=== PATIENT | female | born 1955 | race Caucasian/White ===

== ENCOUNTER 2016-09-06 09:58 | Emergency (ER) | payer OTHER ==
[~2016-09-06] VITALS: Ht 157.5 cm; Wt 61.2 kg
[~2016-09-06 09:58] MED LIST: ACETAMINOPHEN-1 EAC1 PO; AMBIEN 10 MG TA10 MG PO; BACTRIM DS TAB1 EACH PO; COLACE100 MG PO; CYCLOBENZAPRINE5 MG; CYMBALTA30 MG PO; DARVOCET-N 1001 EAC1 PO; DIABETA 5MG TABL5 MG PO; FLEXERIL PO; IBUPROFEN 800800 MG PO; LEXAPRO20 MG; LEXAPRO20 MG PO; LIBRAX PO; LIPITOR 20 MG T20 M1; LIPITOR20 MG; MOBIC7.5 MG PO; NICOTINE TRANSD14 M1; NORCO 5-325 TA1 EACH PO; OXYCODONE HCL 55 MG; PERCOCET PO; PHENERGAN 25 MG25 M1 PO; PROTONIX40 M1; PROTONIX40 M2 PO; TRAMADOL 50 MG50 MG PO; ULTRACET TABLET1 TAB PO; VALIUM5 MG; VALIUM5 MG PO; ZANAFLEX4 MG; ZOCOR 20 MG TAB20 M1 PO
[2016-09-06] MEDS ORDERED: CYMBALTA60 MG PO (10:16)
[2016-09-06] MEDS ORDERED: AMBIEN 5 MG TABL5 M1 PO (10:17)
[2016-09-06] MEDS ORDERED: DIAZEPAM 5 MG5 M1 PO (10:17)
[2016-09-06] MEDS ORDERED: CLEOCIN HCL300 MG PO (10:37)
[2016-09-06] MEDS ORDERED: IBUPROFEN 600600 M1 PO (10:37)
== END 2016-09-06 11:11 | disposition home or self-care (01) ==
LOC: ER 09:58
DX: K04.7 Periapical abscess without sinus (principal); F41.9 Anxiety disorder, unspecified; F17.210 Nicotine dependence, cigarettes, uncomplicated; F32.9 Major depressive disorder, single episode, unspecified; Z90.89 Acquired absence of other organs; Z88.0 Allergy status to penicillin

== ENCOUNTER 2018-05-12 17:56 | Inpatient (IN) | payer OTHER ==
[~2018-05-12] VITALS: Ht 157.5 cm; Wt 61.2 kg
--- NOTE | ~2018-05-12 | HC ---
[facility] [place] [address] CONSULTATION Name: JUAN CARLOS SEARS Room #: 363-P ADM IN M.R.#: [id number] Admission: 05/12/18 Attend Phys: Josafat Contreras MD Discharge: Date of : 57 Report #: [id number] THIS REPORT FOR: //name// CC: JENN physician/PCP Josafat Contreras DATE OF SERVICE: 05/13/2018 CHIEF COMPLAINT: Right pubic ramus fracture and left thumb metacarpal fracture. HISTORY OF PRESENT ILLNESS: This frail 62-year-old female notes chronic severe degenerative arthritis involving both hips with chronic joint pain, which limits her ambulation and function. She states, however, that she has been living alone and functioning adequately, but uses a cane for ambulation. She fell at home, injuring the right pelvis and the left hand. X-rays here reveal a nondisplaced fracture of the right pubic ramus and x-rays of the left hand reveal a nondisplaced fracture of the left thumb metacarpal near its base. Both of these fractures seemed to be stable and well aligned and probably will heal in nicely with conservative management. 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 I have discussed these issues at some length with the patient. She states she is mildly uncomfortable at the right hip and groin, but symptoms there are similar to her previous symptoms. She notes the left hand and thumb is mildly uncomfortable, but is feeling better now that she has a firm supportive splint. She denies any other areas of new injury. Objectively, the right hip demonstrates limited range of motion with some joint crepitus, consistent with her severe degenerative osteoarthritis. There is mild pain to palpation along the pubic symphysis and pubic ramus, consistent with her new nondisplaced fracture. She seems to have satisfactory movement of the left hip with some crepitus and discomfort, consistent with degenerative change. The left wrist and hand are well supported in a plaster splint, which is holding the thumb in neutral position. Neurologic and vascular status appeared to be normal. X-rays, as noted above, reveal severe degenerative arthritis of the right hip and a new nondisplaced pubic ramus fracture. X-rays of left hand reveal a nondisplaced fracture at the base of the first metacarpal. We had a lengthy discussion and I believe both these fractures can be managed nonsurgically. I expect she will have difficulty with ambulation given her preexisting and new problems. I have discussed with her that she might need more assistance and possibly a brief stay in an extended care facility. She states she is confident she can go back to her own home and function independently. She may have some assistance from friends, but she has no family in the area. I feel she can bear full weight on both hips. She can use the [address] [address] CONSULTATION Name: RENUJUAN CARLOS Gail Room #: 363-P [facility] [place] ..#: [id number] Admission: 05/12/18 Attend Phys: Josafat Contreras MD Discharge: Date of : 57 Report #: [id number] left hand with her splint as comfort allows. I think we should probably see her back in my office in 10-14 days for followup x-ray and we may advance to a more comfortable semi-removable thumb spica splint at that point. I think you can proceed with discharge from the hospital, whenever outpatient arrangements are made. <ELECTRONICALLY SIGNED> By: Hong Andres MD 05/15/18 [id number] Hong Andres MD /nt
--- NOTE | ~2018-05-12 | HC ---
[facility] [place] [address] CONSULTATION Name: JUAN CARLOS SEARS Room #: 363-P [facility]#: [id number] Admission: 05/12/18 Attend Phys: Josafat Contreras MD Discharge: 05/18/18 Date of : 57 Report #: [id number] THIS REPORT FOR: //name// CC: JENN physician/PCP Josafat Contreras DATE OF SERVICE: 05/17/2018 HISTORY OF PRESENT ILLNESS: The patient is a 62-year-old white female with a prior history of severe degenerative arthritis, prior pelvic fracture, torn cartilage who was up and had a fall in her kitchen. She was noted to have hit her head, but no loss of consciousness. She complained of severe pelvic pain. She was seen by Orthopedics and noted to have a right pubic ramus fracture as well as a left thumb metacarpal fracture. She also has severe right hip avascular necrosis, which is premorbid. She is allowed to weightbearing as tolerated. We are seeing her in rehabilitation medicine consultation. PAST MEDICAL HISTORY: Includes anxiety, depression, pelvic fracture, cartilage torn right hip. PAST SURGICAL HISTORY: Includes appendectomy and oophorectomy. MEDICATIONS: Please see the full medication listing. This includes vitamins, herbals, and supplements. ALLERGIES: PENICILLIN. HABITS: Current every day smoker of cigarettes. Alcohol once per week. SOCIAL HISTORY: Lives in a house alone. Premorbid cane ambulator, 5 steps in. PHYSICAL EXAMINATION: GENERAL: Thin, small statured 62-year-old white female in no obvious distress, drowsy, will respond. VITAL SIGNS: Last recorded temperature 97.3, pulse 85, respirations 18, blood pressure 115/66. HEENT: Facies appeared symmetric. EXTREMITIES: Her left hand and wrist are dressed with a thumb splint in place. She has reasonable usage of that right upper extremity. Functionally, she is min assist. As far as ambulating short distance ambulation 50 feet with a right platform wheeled walker and mod assist has been noted for sit to stand transfers. ASSESSMENT: A 62-year-old white female with the following problem list: 1. Right pubic ramus fracture allowed weightbearing as tolerated. 2. Left [place] [address] CONSULTATION Name: JUAN CARLOS SEARS Room #: 363-P [facility] IN [facility].#: [id number] Admission: 05/12/18 Attend Phys: Josafat Contreras MD Discharge: 05/18/18 Date of : 57 Report #: [id number] 3. Severe right hip avascular necrosis. 4. Tobacco abuse. 5. History of anxiety and depression. PLAN: I do not see that she meets criteria for an acute [address] [place] [address] inpatient rehabilitation stay. Would agree with alf facility options as you are doing. Thank you for asking us to assist in this patient's care. <ELECTRONICALLY SIGNED> By: Hong Thompson MD 05/28/18 [id number] Hong Thompson MD /nt
[~2018-05-12 17:56] MED LIST changes: +AMBIEN 5 MG TABL5 M1 PO; +CLEOCIN HCL300 MG PO; +CYMBALTA60 MG PO; +DIAZEPAM 5 MG5 M1 PO; +IBUPROFEN 600600 M1 PO
[2018-05-12 18:08] VITALS: BP 159/85
[2018-05-12] MEDS ORDERED: MOBIC7.5 MG PO (18:15)
[2018-05-12] MEDS ORDERED: CYMBALTA30 MG PO (18:15)
[2018-05-12] MEDS ORDERED: LIPITOR 20 MG T20 M1 PO (18:15)
[2018-05-12] MEDS ORDERED: PROTONIX40 M1 PO (18:16)
[2018-05-12] MEDS ORDERED: GABAPENTIN 100100 MG PO (18:16)
[2018-05-12 21:36] LABS: HEMATOCRIT 33.8 % (37.0-47.0); HEMOGLOBIN 11.3 gm/dL (12.0-15.0); MCH 28.4 pg (26.0-34.0); MCHC 33.4 g/dL (28.0-37.0); MCV 84.9 fL (80.0-100.0); PLATELET COUNT 302 thou/uL (150-400); RBC 3.99 mil/uL (4.20-5.00); RDW 18.9 % (10.5-14.5); WBC 20.8 thou/uL (4.0-11.0)
[2018-05-12 21:44] LABS: CALCIUM 8.9 mg/dL (8.5-10.1); CREATININE 1.1 mg/dL (0.6-1.0)
[2018-05-12 22:01] LABS: ABSOLUTE NEUTROPHILS 15.6 thou/uL (1.4-8.2); ANISOCYTOSIS 1+; POLYCHROMASIA OCCASIONAL
[2018-05-12 22:06] VITALS: BP 129/71
[2018-05-12 22:35] VITALS: BP 129/71
[2018-05-12 23:10] VITALS: BP 152/89
[2018-05-13 02:26] LABS: URINE BILIRUBIN NEGATIVE (Negative); URINE BLOOD NEGATIVE (Negative); URINE CLARITY CLEAR; URINE COLOR YELLOW; URINE GLUCOSE-RANDOM* TRACE (Negative); URINE KETONES NEGATIVE (Negative); URINE LEUKOCYTES-REFLEX NEGATIVE (Negative); URINE NITRITE-REFLEX NEGATIVE (Negative); URINE PROTEIN (DIPSTICK) NEGATIVE (Negative); URINE UROBILINOGEN 0.2 E.U./dl (0.2-1.0)
[2018-05-13 05:00] VITALS: BP 128/79
[2018-05-13 06:16] LABS: HEMATOCRIT 32.8 % (37.0-47.0); HEMOGLOBIN 10.7 gm/dL (12.0-15.0); MCH 28.2 pg (26.0-34.0); MCHC 32.8 g/dL (28.0-37.0); MCV 86.1 fL (80.0-100.0); RBC 3.81 mil/uL (4.20-5.00); RDW 19.4 % (10.5-14.5); WBC 12.8 thou/uL (4.0-11.0)
[2018-05-13 06:17] LABS: CALCIUM 8.8 mg/dL (8.5-10.1); CREATININE 1.3 mg/dL (0.6-1.0); POTASSIUM 3.7 mmol/L (3.5-5.1)
[2018-05-13 07:42] VITALS: BP 132/85
[2018-05-13 17:00] VITALS: BP 118/70
[2018-05-13 19:42] VITALS: BP 109/84
[2018-05-14 03:22] VITALS: BP 133/79
[2018-05-14 06:27] LABS: HEMATOCRIT 27.6 % (37.0-47.0); HEMOGLOBIN 9.1 gm/dL (12.0-15.0); MCH 28.8 pg (26.0-34.0); MCHC 33.1 g/dL (28.0-37.0); MCV 87.2 fL (80.0-100.0); RBC 3.16 mil/uL (4.20-5.00); RDW 19.9 % (10.5-14.5)
[2018-05-14 06:43] LABS: CREATININE 0.7 mg/dL (0.6-1.0)
[2018-05-14 06:49] LABS: CALCIUM 6.8 mg/dL (8.5-10.1); POTASSIUM 2.7 mmol/L (3.5-5.1)
[2018-05-14 07:40] VITALS: BP 137/80
[2018-05-14 15:35] LABS: MAGNESIUM 2.1 mg/dL (1.8-2.4)
[2018-05-14 15:36] LABS: POTASSIUM 4.6 mmol/L (3.5-5.1)
[2018-05-14 16:32] VITALS: BP 157/73
[2018-05-14 20:00] VITALS: BP 169/101
[2018-05-15 03:20] VITALS: BP 149/101
[2018-05-15 06:07] LABS: OBSERVED RETIC COUNT 2.25 % (0.6-2.6)
[2018-05-15 06:23] LABS: % SATURATION 11 % (20-39); IRON 26 ug/dL (50-170); TIBC 244 ug/dL (250-450)
[2018-05-15 08:25] VITALS: BP 149/90
[2018-05-15 16:51] VITALS: BP 141/85
[2018-05-15 19:09] VITALS: BP 134/52
[2018-05-16 04:04] VITALS: BP 153/85
[2018-05-16 08:22] VITALS: BP 170/93
[2018-05-16 15:25] VITALS: BP 120/70
[2018-05-16 19:34] VITALS: BP 154/93
[2018-05-17 04:12] VITALS: BP 129/70
[2018-05-17 06:20] LABS: HEMATOCRIT 31.2 % (37.0-47.0); HEMOGLOBIN 10.1 gm/dL (12.0-15.0); MCH 27.8 pg (26.0-34.0); MCHC 32.3 g/dL (28.0-37.0); MCV 86.2 fL (80.0-100.0); RBC 3.61 mil/uL (4.20-5.00); RDW 19.6 % (10.5-14.5); WBC 11.3 thou/uL (4.0-11.0)
[2018-05-17 06:29] LABS: CALCIUM 9.6 mg/dL (8.5-10.1); POTASSIUM 4.1 mmol/L (3.5-5.1)
[2018-05-17 07:35] VITALS: BP 115/66
[2018-05-17 15:06] VITALS: BP 121/79
[2018-05-17 19:22] VITALS: BP 125/64
[2018-05-18 04:39] VITALS: BP 125/71
[2018-05-18 08:02] VITALS: BP 145/112
[2018-05-18 11:58] VITALS: BP 129/72
[2018-05-18] MEDS ORDERED: NICOTINE TRANSD14 M1 TRANSDERM (14:03)
[2018-05-18] MEDS ORDERED: IRON325 PO (14:03)
[2018-05-18] MEDS ORDERED: PERCOCET 10-321 EACH PO (14:04)
== END 2018-05-18 16:00 | DRG 535 ==
LOC: ER 17:56 → EROBS 20:35 → 3W 20:35
PROVIDERS: Emergency Medicine; Hospitalist; Nurse Practitioner Family
PROC: 2W3FX1Z Immobilization of Left Hand using Splint (ICD-10-PCS; principal; 2018-05-12)
DX: S32.591A Other specified fracture of right pubis, initial encounter for closed fracture (principal); N17.0 Acute kidney failure with tubular necrosis; M87.851 Other osteonecrosis, right femur; Z60.2 Problems related to living alone; F41.9 Anxiety disorder, unspecified; F32.9 Major depressive disorder, single episode, unspecified; F17.210 Nicotine dependence, cigarettes, uncomplicated; M16.0 Bilateral primary osteoarthritis of hip; G89.29 Other chronic pain; W01.0XXA Fall on same level from slipping, tripping and stumbling without subsequent striking against object, initial encounter; E87.6 Hypokalemia; D72.829 Elevated white blood cell count, unspecified; G47.00 Insomnia, unspecified; K21.9 Gastro-esophageal reflux disease without esophagitis; M62.84 Sarcopenia; D64.9 Anemia, unspecified; E53.8 Deficiency of other specified B group vitamins; S62.242A Displaced fracture of shaft of first metacarpal bone, left hand, initial encounter for closed fracture; Z90.49 Acquired absence of other specified parts of digestive tract; Z90.721 Acquired absence of ovaries, unilateral; Z79.899 Other long term (current) drug therapy; Z88.0 Allergy status to penicillin; Y93.89 Activity, other specified; Y92.090 Kitchen in other non-institutional residence as the place of occurrence of the external cause; Y99.8 Other external cause status; Z71.6 Tobacco abuse counseling; Z23 Encounter for immunization
CPT/HCPCS: 10879

== ENCOUNTER 2021-06-13 18:43 | Emergency (ER) | payer OTHER ==
[~2021-06-13] VITALS: Ht 157.5 cm; Wt 63.5 kg
--- NOTE | ~2021-06-13 | EMS ---
[address] [address] EMS Patient Care Report Name: JUAN CARLOS SEARS Room #: DEP FRANC Fam#: [id number] Admission: 06/13/21 Attend Phys: Discharge: 06/13/21 Date of : 57 Report #: [id number] THIS REPORT FOR: //name// Report Transmitted: 06/17/2021 14:35 EMS Care Summary [place], [place]/[facility] Incident [id number] @ 06/13/2021 17:59 Incident Location [address] [place] [address] Patient JUAN CARLOS SEARS Female, 65 Years 1955 Patient Address [address] [place] [address] Patient History None Reported, Patient Allergies No known allergies, Patient Medications None Reported, Chief Complaint LOWER BACK Disposition Transported No Lights/[place] Reason Psychiatric Problem/Abnormal Behavior/Suicide Attempt Transported To [facility] Narrative M41 RESPONDED TO THE RESIDENCE OF A 65 YEAR OLD FEMALE FOR A PSYCH. UPON ARRIVAL PT WAS FOUND IN THE SITTING POSITION ON HER BED STATING LOWER BACK PAIN SINCE YESTERDAY. PT STATED SHE COULD NOT WALK DUE TO HER PAIN. PT STATED SHE ATTEMPTED TO STAND UP AND "TWEEKED HER BACK". PT WAS NOTED TO LIVE IN A [address] [address] EMS Patient Care Report Name: JUAN CARLOS SEARS [id number] Admission: 06/13/21 Attend Phys: Discharge: 06/13/21 Date of : 57 Report #: [id number] HO[employer] HOUSE AND COULD NOT SAFELY MOVE THROUGH THE HOME. PT STATED NO FURTHER PAIN OR COMPLAINTS. PT WAS LIFTED TO THE COT VIA TWO MAN CARRY. COT TO UNIT. EN ROUTE. PT CONDITION REMAINED UNCHANGED UPON ARRIVAL TO DESTINATION. PT WAS RELEASED TO NURSING STAFF WITHOUT FURTHER INCIDENT. M41 IN SERVICE. Initial Vitals @18:23P: 112,R: 16,BP: 198/106,Pain: 10/10,GCS: 15,SpO2: 99,Revised Trauma: 12, Assessments @18:24MENTAL:No Abnormalities,SKIN:No Abnormalities,HEENT:Head/Face: No Abnormalities,Eyes: No Abnormalities,Neck/Airway: No Abnormalities,LUNG SOUNDS:General: No Abnormalities,Left Upper: No Abnormalities,Right Upper: No Abnormalities,Left Lower: No Abnormalities,Right Lower: No Abnormalities,ABDOMEN:General: No Abnormalities,Left Upper: No Abnormalities,Right Upper: No Abnormalities,Left Lower: No Abnormalities,Right Lower: No Abnormalities,PELVIS//GI:No Abnormalities,EXTREMITIES:Left Arm: No Abnormalities,Right Arm: No Abnormalities,Left Leg: No Abnormalities,Right Leg: No Abnormalities,PULSE:NEURO:No Abnormalities,@18:24MENTAL:No Abnormalities,SKIN:No Abnormalities,HEENT:Head/Face: No Abnormalities,Eyes: No Abnormalities,Neck/Airway: No Abnormalities,LUNG SOUNDS:General: No Abnormalities,Left Upper: No Abnormalities,Right Upper: No Abnormalities,Left Lower: No Abnormalities,Right Lower: No Abnormalities,ABDOMEN:General: No Abnormalities,Left Upper: No Abnormalities,Right Upper: No Abnormalities,Left Lower: No Abnormalities,Right Lower: No Abnormalities,PELVIS//GI:No Abnormalities,EXTREMITIES:Left Arm: No Abnormalities,Right Arm: No Abnormalities,Left Leg: No Abnormalities,Right Leg: No Abnormalities,PULSE:NEURO:No Abnormalities, Impression Back Pain Timeline 17:56,Call Received 17:56,Dispatch Notified 17:59,Dispatched 17:59,En Route 18:06,On Scene 18:07,At Patient 18:23,BP: 198/106 M,PULSE: 112,RR: 16 R,SPO2: 99 Ox,ETCO2: ,BG: ,PAIN: 10,GCS: 15, 18:27,Depart Scene 18:45,At Destination 19:00,Call Closed Disclaimer [address] [address] EMS Patient Care Report Name: JUAN CARLOS SEARS [facility] [id number] Admission: 06/13/21 Attend Phys: Discharge: 06/13/21 Date of : 57 Report #: [id number] v1.1 Copyright 2020 [employer] This EMS Care Summary contains data elements from the applicable legal record (which may be displayed differently). It is designed to provide pertinent information for the following purposes: continuity of care, clinical quality, and state data reporting. The complete legal record is available to ED staff and administrators of the receiving hospital in [facility]'s Patient Tracker. All data is provided "as is."
[~2021-06-13 18:43] MED LIST changes: +GABAPENTIN 100100 MG PO; +IRON325 PO; +LIPITOR 20 MG T20 M1 PO; +NICOTINE TRANSD14 M1 TRANSDERM; +PERCOCET 10-321 EACH PO; +PROTONIX40 M1 PO
[2021-06-13 21:20] LABS: HEMATOCRIT 37.9 % (37.0-47.0); HEMOGLOBIN 12.2 gm/dL (12.0-15.0); MCH 27.1 pg (26.0-34.0); MCHC 32.3 g/dL (28.0-37.0); MCV 83.9 fL (80.0-100.0); PLATELET COUNT 292 thou/uL (150-400); RBC 4.52 mil/uL (4.20-5.00); WBC 16.9 thou/uL (4.0-11.0)
[2021-06-13 21:28] LABS: CREATININE 1.2 mg/dL (0.6-1.0); POTASSIUM 4.7 mmol/L (3.5-5.1)
[2021-06-13 21:38] LABS: ALBUMIN 3.5 g/dL (3.4-5.0); TOTAL PROTEIN 7.9 g/dL (6.4-8.2)
[2021-06-13 22:37] VITALS: BP 168/78
[2021-06-13 22:57] LABS: ABSOLUTE NEUTROPHILS 14.7 thou/uL (1.4-8.2)
[2021-06-13 22:58] LABS: ANISOCYTOSIS 1+; LARGE PLATELETS FEW; PLATELET ESTIMATE NORMAL; POIKILOCYTOSIS 1+; POLYCHROMASIA 1+
== END 2021-06-13 22:39 | disposition short-term general hospital (02) ==
LOC: ER 18:43
PROVIDERS: Emergency Medicine
DX: M48.54XA Collapsed vertebra, not elsewhere classified, thoracic region, initial encounter for fracture (principal); Z20.822 Contact with and (suspected) exposure to COVID-19; M48.56XA Collapsed vertebra, not elsewhere classified, lumbar region, initial encounter for fracture; M54.50 Low back pain, unspecified; F41.9 Anxiety disorder, unspecified; F32.9 Major depressive disorder, single episode, unspecified; F17.210 Nicotine dependence, cigarettes, uncomplicated; Z98.890 Other specified postprocedural states; Z90.721 Acquired absence of ovaries, unilateral; Z79.1 Long term (current) use of non-steroidal anti-inflammatories (NSAID); Z79.891 Long term (current) use of opiate analgesic; Z79.899 Other long term (current) drug therapy; Z88.0 Allergy status to penicillin